=== PATIENT | female | born 1970 | race Caucasian/White ===

== ENCOUNTER → 2016-06-28 | Outpatient (CLI) | payer BC ==
[~2016-06-28] MED LIST: ASPI-557 PO; DULO60CA56 PO; FERR325T40 PO; HYDR25CA PO; LOSA25TA34 PO; MELO-273 PO; METF10002 PO; OMEP40CA52 PO; SIMV10TA6 PO; [UNRECOGNIZED DRUG - CODE] PO
[2016-06-28 12:37] LABS: ABSOLUTE RETICS # 0.1051 T/MM3 (0.0300-0.0900); BASOPHILS # (AUTO) 0.1 T/MM3 (0-0.2); BASOPHILS % (AUTO) 0.5 % (0-2); EOSINOPHILS # (AUTO) 0.2 T/MM3 (0-0.5); EOSINOPHILS % (AUTO) 1.6 % (0-4); HCT - HEMATOCRIT 40.9 % (36-46); HGB - HEMOGLOBIN 13.1 GM/DL (12-16); IMMATURE GRANULOCYTE # (AUTO) 0.05 T/MM3 (0.00-0.03); IMMATURE GRANULOCYTE % (AUTO) 0.4 % (0.0-0.5); LYMPHOCYTES # (AUTO) 4.5 T/MM3 (1-4.8); LYMPHOCYTES % (AUTO) 36.4 % (23-45); MEAN CORPUSCULAR VOLUME 81.3 UM3 (80-100); MEAN PLATELET VOLUME 9.8 UM3 (9.4-12.4); MONOCYTES # (AUTO) 0.6 T/MM3 (0-0.8); MONOCYTES % (AUTO) 5.1 % (0-9.0); NEUTROPHILS #(AUTO)-ABSOLUTE 6.9 T/MM3 (1.8-7.7); RED BLOOD COUNT 5.03 M/MM3 (4.00-5.20); RETICULOCYTE % 2.1 % (0.6-1.7); RETICULOCYTE HGB 31.3 PG (30.8-36.6); WBC - WHITE BLOOD COUNT 12.3 T/MM3 (4.5-11.0)
== END ==
LOC: LAB 12:22
PROVIDERS: ATTEND Internal Medicine Hematology & Oncology
DX: D50.9 Iron deficiency anemia, unspecified (principal)
CPT/HCPCS: 36415; 85025; 85045